=== PATIENT | male | born 1960 | race Caucasian/White ===

== ENCOUNTER 2016-12-31 20:15 | Emergency (ER) | payer OTHER ==
[2016-12-31 20:24] VITALS: BP 123/77
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
[2016-12-31] MEDS ORDERED: PANTOPRAZOLE SO40 M1 PO (21:12)
[2016-12-31] MEDS ORDERED: METHOCARBAMOL500 M1 (21:13)
[2016-12-31] MEDS ORDERED: GABAPENTIN400 M2 (21:13)
[2016-12-31] MEDS ORDERED: ASPIRIN EC81 M1 PO (21:13)
[2016-12-31] MEDS ORDERED: ATORVASTATIN CA20 M1 (21:14)
[2016-12-31] MEDS ORDERED: LISINOPRIL-HCT1 EAC1 (21:14)
[2016-12-31] MEDS ORDERED: ELIQUIS5 M1 (21:14)
[2016-12-31] MEDS ORDERED: OXYCODONE HCL30 M1 (21:15)
[2016-12-31] MEDS ORDERED: MORPHINE SULFAT30 M3 (21:15)
[2016-12-31] MEDS ORDERED: IBUPROFEN800 M1 (21:16)
[2016-12-31] MEDS ORDERED: FINASTERIDE5 M1 (21:16)
[2016-12-31] MEDS ORDERED: ANDROGEL75 G1 (21:16)
[2016-12-31] MEDS ORDERED: METOPROLOL SUCC50 M2 (21:17)
--- NOTE | 2016-12-31 22:28 | RADIOLOGY REPORT ---
Indication: Fall EXAMINATION: Right shoulder and pelvis bilateral right hip. Right shoulder 3 views. FINDINGS: Significant degenerative changes. No convincing evidence for an acute fracture or dislocation. Single view of the pelvis shows degeneration right greater than left hip. No convincing evidence for fracture. Detail views of the right hip again do not show convincing evidence for fracture or dislocation. IMPRESSION: Degenerative changes significant in the right shoulder. There are also degenerative changes in the hips bilaterally. No convincing evidence of fracture or dislocation right hip, right shoulder.
[2016-12-31] MEDS ORDERED: PERCOCET 5-3251 EACH PO (22:37)
== END 2016-12-31 22:52 ==
LOC: ERH 20:15
DX: M25.511 Pain in right shoulder (principal); M25.551 Pain in right hip
CPT/HCPCS: 73030-RT; 73502-RT